=== PATIENT | female | born 1970 | race Caucasian/White ===

== ENCOUNTER → 2016-10-20 | Outpatient (CLI) | payer BC ==
[~2016-10-20] MED LIST: LOVASTATIN10 MG PO; MACROBID 1100 MG/CAP PO; MYCARDIS; PERCOCET 500 MG1 TAB; PRILOSEC20 M1 PO
== END ==
LOC: MC.RAD 11:14
DX: Z12.31 Encounter for screening mammogram for malignant neoplasm of breast (principal)

== ENCOUNTER 2017-09-24 06:50 | Day surgery (SDC) | payer BC ==
[~2017-09-24] VITALS: Ht 170.2 cm; Wt 74.1 kg
[2017-09-24] MEDS ORDERED: MICARDIS80 MG PO (07:09)
[2017-09-24] MEDS ORDERED: LIPITOR 40MG TA40 MG PO (07:10)
[2017-09-24] MEDS ORDERED: PRILOSEC 20MG20 MG PO (07:10)
[2017-09-24] MEDS ORDERED: NORVASC 5MG5 MG/TAB PO (07:10)
[2017-09-24 07:11] VITALS: BP 139/91; PULSE 90; TEMP 98.6
[2017-09-24 09:52] VITALS: BP 132/75; PULSE 96; TEMP 98.7
[2017-09-24 10:05] VITALS: BP 125/64; PULSE 87
[2017-09-24 10:25] VITALS: BP 98/58; PULSE 72
[2017-09-24 10:40] VITALS: BP 91/56; PULSE 71
== END 2017-09-24 11:05 | disposition home or self-care (01) ==
LOC: SDCO 06:50
DX: Z12.11 Encounter for screening for malignant neoplasm of colon (principal); K21.0 Gastro-esophageal reflux disease with esophagitis; I10 Essential (primary) hypertension; E78.00 Pure hypercholesterolemia, unspecified; Z88.2 Allergy status to sulfonamides; Z86.010 Personal history of colon polyps; Z83.71 Family history of colonic polyps
CPT/HCPCS: OP; J2250; J3010; J7030

== ENCOUNTER → 2017-10-06 | Outpatient (CLI) | payer BC ==
[~2017-10-06] MED LIST changes: +LIPITOR 40MG TA40 MG PO; +MICARDIS80 MG PO; +NORVASC 5MG5 MG/TAB PO; +PRILOSEC 20MG20 MG PO
== END ==
LOC: MC.RAD 15:16
DX: Z12.31 Encounter for screening mammogram for malignant neoplasm of breast (principal)

== ENCOUNTER 2018-09-30 07:00 | Day surgery (SDC) | payer BC ==
[~2018-09-30] VITALS: Ht 170.2 cm; Wt 78.0 kg
[2018-09-30] MEDS ORDERED: BYSTOLIC5 MG PO (07:16)
[2018-09-30] MEDS ORDERED: CYMBALTA 30MG30 MG PO (07:19)
[2018-09-30 07:20] VITALS: BP 117/75; PULSE 78; TEMP 97.2
[2018-09-30 08:44] VITALS: BP 109/66; PULSE 68; TEMP 98
--- NOTE | 2018-09-30 08:44 | NUR ---
Pt to [facility] via cart from ENDO. Pt awake and alert. Denies pain or nausea. Pt ambulates to recliner with stand by assistance. in room. IV fluids infusing without difficulties. VSS. Call light within reach. Coffee and applecsauce given per pt request. Will continue to monitor.
[2018-09-30 09:00] VITALS: BP 92/60; PULSE 63
--- NOTE | 2018-09-30 09:00 | NUR ---
Pt continues to rest. Denies needs. Tolerating food and fluids without difficulties. Call light within reach.
[2018-09-30 09:15] VITALS: BP 97/66; PULSE 63
--- NOTE | 2018-09-30 09:15 | NUR ---
Pt continues to rest. Denies needs. Call light within reach.
--- NOTE | 2018-09-30 09:30 | NUR ---
Discharge instructions reviewed. Pt voices understanding. IV site discontinued with all parts intact. Pt up to dress. Call light within reach.
--- NOTE | 2018-09-30 09:45 | NUR ---
Pt escorted to private car via wheel chair. Pt accompanied home by her .
== END 2018-09-30 09:45 | disposition home or self-care (01) ==
LOC: SDCO 07:00
DX: K21.9 Gastro-esophageal reflux disease without esophagitis (principal); K22.70 Barrett's esophagus without dysplasia; I10 Essential (primary) hypertension; E78.00 Pure hypercholesterolemia, unspecified; F41.9 Anxiety disorder, unspecified; Z90.710 Acquired absence of both cervix and uterus; Z88.2 Allergy status to sulfonamides; Z86.010 Personal history of colon polyps
CPT/HCPCS: J2704; J7120

== ENCOUNTER → 2018-10-24 | Outpatient (CLI) | payer BC ==
[~2018-10-24] MED LIST changes: +BYSTOLIC5 MG PO; +CYMBALTA 30MG30 MG PO
== END ==
LOC: MC.RAD 11:44
DX: Z12.31 Encounter for screening mammogram for malignant neoplasm of breast (principal)

== ENCOUNTER → 2019-11-21 | Outpatient (CLI) | payer BC | LOC: MC.RAD 16:17 | DX: Z12.31 Encounter for screening mammogram for malignant neoplasm of breast (principal) ==

== ENCOUNTER → 2020-11-21 | Outpatient (CLI) | payer BC | LOC: MC.RAD 10:59 | DX: Z12.31 Encounter for screening mammogram for malignant neoplasm of breast (principal) ==

== ENCOUNTER → 2021-11-25 | Outpatient (CLI) | payer BC | LOC: MC.RAD 10:44 | DX: Z12.31 Encounter for screening mammogram for malignant neoplasm of breast (principal) ==

== ENCOUNTER → 2024-01-03 | Outpatient (CLI) | payer BC | LOC: MC.RAD 06:06 | DX: Z12.31 Encounter for screening mammogram for malignant neoplasm of breast (principal); N64.89 Other specified disorders of breast ==

== ENCOUNTER → 2024-01-06 | Outpatient (CLI) | payer BC | LOC: MC.RAD 13:53 | DX: N63.11 Unspecified lump in the right breast, upper outer quadrant (principal) ==